=== PATIENT | female | born 1995 | race African-American/Black ===

== ENCOUNTER → 2016-11-29 | Outpatient (CLI) | payer OTHER ==
[~2016-11-29] MED LIST: ADVIL200 M1 PO; ROBITUSSIN A-C S5 ML PO; VOLTAREN75 MG PO
--- NOTE | ~2016-11-29 | CR7 ---
[facility] A Service of [facility] & [facility] RADIOLOGY TEXT RESULTS PATIENT: HAMIDA VELASQUEZ LOCATION: [facility] : [birth year] UNIT #: [id number] AGE: [address]: Robyn Puri APRN SEX: F ORDER DR: [id number] [facility] [address] [place], [place] [address] [id number] O MR#: [id number] #: [id number] NAME: HAMIDA VELASQUEZ. : 1995 SEX: F STUDY DATE/TIME: 11/29/2016 12:30 UNIT: [facility] ROOM: STUDY DESCRIPTION: CR Abdomen Single AP View Attending Physician: Robyn Puri Aprn Ordering Physician: Robyn Puri Aprn Primary Care Physician: Azul Starks M.D. MEDICAL IMAGING REPORT This report is preliminary unless electronic signature is present EXAM Supine radiograph of the abdomen 11/29/2016 HISTORY Abdominal pain with hematuria. FINDINGS Supine radiograph of the abdomen is presented. Comparison 05/10/2014. No acute bony abnormality. Mild and stable levoscoliosis at the thoracolumbar junction. The bowel gas pattern is normal. No free air. Where visible solid organ contours are unremarkable. No radiodense calculus suggested over renal beds, anticipated course of ureters or urinary bladder. If it would assist in management, the abdomen and pelvic could be further evaluated with CT. Dictated by... Omid Zurita M.D. THIS IS AN ELECTRONICALLY VERIFIED REPORT Omid Zurita M.D. at 12/02/2016 9:09 AM Cesar TD: 12/01/2016 09:08 JOB #: [id number] MEDICAL IMAGING REPORT Page 1 of 1 COPY
== END | disposition home or self-care (01) ==
LOC: CRAD 12:12
DX: R10.9 Unspecified abdominal pain (principal); R31.9 Hematuria, unspecified
CPT/HCPCS: 74000

== ENCOUNTER 2017-02-01 20:24 | Emergency (ER) | payer OTHER | END 2017-02-01 21:02 | disposition home or self-care (01) | LOC: SED 20:24 | DX: S61.213A Laceration without foreign body of left middle finger without damage to nail, initial encounter (principal); S61.217A Laceration without foreign body of left little finger without damage to nail, initial encounter; Z23 Encounter for immunization; W26.8XXA Contact with other sharp object(s), not elsewhere classified, initial encounter; Y92.9 Unspecified place or not applicable | CPT/HCPCS: 90471; 90715; 99283 ==